=== PATIENT | male | born 1970 | race Caucasian/White ===

== ENCOUNTER → 2020-03-04 15:15 | Outpatient (CLI) | payer OTHER, SELFPAY ==
--- NOTE | ~2020-03-04 | XR_ITS ---
XR abdomen/kub 1V 03/04/2020 15:39 INDICATION: Acute flank pain TECHNIQUE: KUB COMPARISON: None FINDINGS: Bowel gas pattern is normal. Moderate colonic fecal loading. There is no evidence of free a ir, mass, organomegaly, ascites or obstruction. There is a left renal stone at the upper pole. There is a calcification in the right pelvis, likely a phlebolith. The bones appear intact. IMPRESSION: 1: Left nephrolithiasis. Reviewed, dictated and finalized at location A. IMPRESSION: 1: Left nephrolithiasis.
--- NOTE | ~2020-03-04 | CT_ITS ---
EXAMINATION: CT abdomen pelvis wo con DATE: 03/04/2020 15:39 INDICATION: Acute bilateral flank pain, difficulty urinating TECHNIQUE: Computed tomography (CT) of the abdomen and pelvis was performed without intravenous contr ast. The dose-length product (DLP) was 758.39 mGy-cm. Automated exposure control and iterative recons truction technique were employed. COMPARISON: Ultrasound, 02/05/2016 FINDINGS: There is a 3 mm nodule of the right lower lobe, likely old granulomatous disease in the abs ence of known risk factors. The heart size is normal. The liver, spleen, pancreas, gallbladder, and a drenal glands are normal. There is fluid attenuation centered at the hilum of the left kidney. There is questionable calyceal dilatation in the lower pole of the kidney but no definite calyceal dilatati on in the upper pole of the kidney. A 4 mm nonobstructing stone is present in the upper pole of the l eft kidney. There is a 3 mm nonobstructing stone of the right kidney upper pole. No stones are identi fied in the ureters or bladder. No pathologically enlarged abdominal or pelvic lymph nodes are identi fied. There is no free intraperitoneal gas or evidence of bowel obstruction. A large volume of coloni c stool is present. There is moderate lumbar spondylosis at L5-S1. A fat-containing umbilical hernia is noted. IMPRESSION: 1. Nonobstructing bilateral nephrolithiasis. 2. Fluid attenuation center at the hilum of the left kidney with questionable calyceal dilatation of the lower pole. Findings could reflect peripelvic cyst or possible UPJ stricture and a duplicated col lecting system. Consider CT urogram. 3. Constipation. Reviewed, dictated and finalized at location A. IMPRESSION: 1. Nonobstructing bilateral nephrolithiasis. 2. Fluid attenuation center at the hilum of the left kidney with questionable c alyceal dilatation of the lower pole. Findings could reflect peripelvic cyst or possible UPJ stricture and a duplicated collecting system. Consider CT urogram . 3. Constipation.
== END ==
PROVIDERS: PCP Family Medicine; Visit Provider Nurse Practitioner Adult Health
DX: R10.9 Unspecified abdominal pain (principal); N20.0 Calculus of kidney; K59.00 Constipation, unspecified
CPT/HCPCS: 74018; 74176

== ENCOUNTER → 2020-03-11 10:47 | Outpatient (CLI) | payer OTHER, SELFPAY ==
--- NOTE | ~2020-03-11 | CT_ITS ---
EXAMINATION: CT abdomen pelvis wo/w con DATE: 03/11/2020 11:51 INDICATION: Fluid attenuating reported at hilar area of left kidney with questionable calyceal dilata tion of lower pole; parapelvic cyst or possible UPJ stricture were suggested on 03/04/[address] abdomen pelvis examination. TECHNIQUE: Computed tomography (CT) of the abdomen and pelvis was performed without and subsequently with 130 cc Omnipaque 350 intravenous contrast. Automated exposure control and iterative reconstructi on technique were employed. Exam dose: 1690.54 mGy-cm total exam DLP. COMPARISON: 03/04/[address] abdomen pelvis FINDINGS: Normal heart size. No pericardial or pleural effusion. No infiltrate or consolidation in th e lower lung zones. Occasional calcified pulmonary granuloma. The liver, pancreas, spleen, adrenal glands, gallbladder, bile ducts and pancreatic duct are unremark able. Normal caliber of the abdominal aorta. No intraperitoneal or retroperitoneal or pelvic mass lesion or adenopathy or ascites. Up to approximately 4 x 5.4 cm left parapelvic renal cyst is identified. There are two very small cortical cysts of the right kidney are noted. There is a 4 mm nonobstructing upper pole right renal calculus. There is a 4 mm nonobstructing upper pole left renal calculus. No ureteral calculus or hydronephrosis of either kidney is noted. There is a fat containing umbilical hernia. There is prostate enlargement. The urinary bladder is unremarkable. There is a prominent amount of fecal material in the rectum and colon. No bowel obstruction, bowel wa ll thickening, pneumatosis or intraperitoneal free air is detected. There is moderately prominent degenerative disc disease and mild retrolisthesis at L5-S1; no suspicio us osteolytic or osteoblastic lesions are noted. IMPRESSION: Bilateral 4 mm upper pole nonobstructing renal calculi 4 x 5.4 cm left parapelvic renal cyst Prostate enlargement Reviewed, dictated and finalized at Location A. Reviewed, dictated and finalized at location B.
[2020-03-11 11:13] LABS: Estimated Glomerular Filt Rate > 60
== END ==
PROVIDERS: PCP Family Medicine; Visit Provider Nurse Practitioner Adult Health
DX: N28.1 Cyst of kidney, acquired (principal); N40.0 Benign prostatic hyperplasia without lower urinary tract symptoms
CPT/HCPCS: 74178; Q9967

== ENCOUNTER 2021-05-31 17:54 | Emergency (ER) | payer OTHER, SELFPAY ==
[2021-05-31 18:06] VITALS: BP 144/86; PULSE 67; RESP 20; TEMP 37.1; O2SAT 98
--- NOTE | 2021-05-31 18:22 | ED.EYEPROB ---
HPI - Eye Problem General Chief complaint: Eye Problems Stated complaint: left eye pain Time Seen by Provider: 05/31/21 18:23 Source: patient, RN notes reviewed and old records reviewed Mode of arrival: ambulatory Limitations: no limitations History of Present Illness HPI Narrative: 51-year-old male presents to the [facility] with complaints of left eye pain. States that he was using a chainsaw and thinks he may have gotten sawdust in his eye. chief complaint: eye pain Related Data Home Medications Medication Instructions Recorded Confirmed gabapentin 300 mg capsule 300 mg PO DAILY PRN 07/12/20 07/12/20 testosterone cypionate See Rx Instructions .ROUTE .COMPLEX 05/31/21 05/31/21 Allergies Allergy/AdvReac Type Severity Reaction Status Date / Time codeine AdvReac Unknown Nausea Verified 05/31/21 18:08 Review of Systems Review of Systems: All systems reviewed & are unremarkable except as noted in HPI and below Constitutional: Constitutional: Reports no additional constitutional complaints, Denies chills and Denies fever(s) Eyes: Eyes: Reports as per HPI, Denies blurry vision, Denies exophthalmos, Denies change in vision, Reports irritation, Denies other visual disturbances, Reports eye pain and Reports photophobia ENT: Reports system reviewed and no additional complaints, except as documented Cardiovascular: Cardiovascular: Reports no additional cardiovascular complaints Respiratory: Respiratory: Reports no additional respiratory complaints Gastrointestinal: Gastrointestinal: Reports no additional gastrointestinal complaints Genitourinary: Genitourinary: Reports no additional male genitourinary complaints Musculoskeletal: Musculoskeletal: Reports no additional musculoskeletal complaints Integumentary/Breasts: Skin/Breast: Reports system reviewed and no additional complaints, except as docu Neurologic: Reports system reviewed and no additional complaints, except as documented Psychiatric: Psychiatric: Reports no additional psychiatric complaints Allergic/Immunologic: Allergic/Immunologic: Reports no additional allergic/immunologic complaints [facility] Past Medical History Medical History (Updated 05/31/21 @ 20:10 by Marisol Hagan) Essential (primary) hypertension Hyperlipidemia, unspecified Surgical History Surgical History History of hip surgery 2007 Family History Family History Mother Family history of elevated blood lipids Patient's mother is in good health Father Family history of lymphoma, Onset Age: 65 Social History Social History Smoking status: Never smoker Alcohol intake: never Comments At the time of my signature, I reviewed and agree with the nursing past medical, surgical, social, and family history. There is no relevant family history pertinent to the patient complaint. Exam Const: General: no acute distress and alert Orientation/consciousness: patient oriented x3 HENMT: Head: normal to inspection Eyes: General: appearance normal, both eyes and all related structures Visual Cain: normal visual cain by confrontation Alignment and Position: alignment normal Eyelids: eyelid abnormality left upper eyelid erythema, foreign body (vs stye) and swelling; no crusting or scaling of lid margins Conjunctivae: conjunctivae normal Cornea: corneas abnormal (Small abrasion noted to the left medial aspect) and fluorescein used Pupils: Equal, round and reactive pupils present EOM: EOMs intact bilaterally Direct Ophthalmoscopy: normal light reflex and photophobia Eyes/upper lids images: 1. Abrasion 2. Inside left upper eyelid medial aspect concern for stye versus piece of sawdust. Discussed in great detail with this patient Neck: Neck: normal visual inspection, no lymphadenopathy and no meningeal signs Chest:
[2021-05-31 18:27] VITALS: BP 144/86; PULSE 67; RESP 20; TEMP 37.1; O2SAT 98
== END 2021-05-31 18:45 | disposition home or self-care (01) ==
PROVIDERS: Emergency Provider Nurse Practitioner
DX: S05.02XA Injury of conjunctiva and corneal abrasion without foreign body, left eye, initial encounter (principal); X58.XXXA Exposure to other specified factors, initial encounter; H00.014 Hordeolum externum left upper eyelid; I10 Essential (primary) hypertension; E78.5 Hyperlipidemia, unspecified
CPT/HCPCS: 99213; A9270; G0463

== ENCOUNTER 2022-02-02 07:51 | Outpatient (CLI) | payer OTHER, SELFPAY ==
[2022-02-02 18:53] LABS: Alanine Aminotransferase 38 U/L (6-50); Albumin Level 3.9 g/dL (3.5-5.1); Alkaline Phosphatase 74 U/L (38-126); Anion Gap 8 mmol/L (8-16); Aspartate Amino Transferase 36 U/L (17-59); Bilirubin,Total 1.2 mg/dL (0.2-1.3); Blood Urea Nitrogen 23 mg/dL (9-20); Calcium 9.5 mg/dL (8.4-10.2); Carbon Dioxide 27 mmol/L (22-30); Chloride 103 mmol/L (98-107); Cholesterol 255 mg/dL (0-200); Estimated Glomerular Filt Rate > 60; Glucose 86 mg/dL (65-110); HDL Direct 46 mg/dL; Potassium 4.4 mmol/L (3.4-5.0); Sodium 138 mmol/L (137-145); Triglycerides 58 mg/dL (<150)
[2022-02-02 19:04] LABS: LDL Cholesterol Direct 162 mg/dL
[2022-02-02 19:08] LABS: Hemoglobin A1C 5.4 % (<5.7)
[2022-02-05 20:32] LABS: PSA, Free 0.61 ng/mL; PSA, Total 3.5 ng/mL (<=4.0); Percent Free Prostate Spec Ag 17 % (>25)
== END 2022-02-02 07:52 | disposition home or self-care (01) ==
LOC: ANHGOSHLAB 07:53
PROVIDERS: PCP Emergency Medicine; Visit Provider Emergency Medicine
DX: R97.20 Elevated prostate specific antigen [PSA] (principal); Z00.00 Encounter for general adult medical examination without abnormal findings
CPT/HCPCS: 36415; 80053; 80061; 83036; 84153; 84154

== ENCOUNTER 2022-06-09 11:35 | Outpatient (CLI) | payer OTHER, SELFPAY ==
[2022-06-09 21:36] LABS: Alanine Aminotransferase 116 U/L (6-50); Albumin Level 4.1 g/dL (3.5-5.1); Alkaline Phosphatase 93 U/L (38-126); Anion Gap 5 mmol/L (8-16); Aspartate Amino Transferase 84 U/L (17-59); Bilirubin,Total 0.8 mg/dL (0.2-1.3); Blood Urea Nitrogen 14 mg/dL (9-20); Calcium 9.1 mg/dL (8.4-10.2); Carbon Dioxide 32 mmol/L (22-30); Chloride 104 mmol/L (98-107); Estimated Glomerular Filt Rate > 60; Glucose 98 mg/dL (65-110); Potassium 4.4 mmol/L (3.4-5.0); Sodium 141 mmol/L (137-145)
[2022-06-09 22:37] LABS: Folic Acid 17.9 ng/mL (2.76->20); Vitamin B12 > 1000.0 pg/mL (239-931)
== END 2022-06-09 11:36 | disposition home or self-care (01) ==
LOC: ANHGOSHLAB 11:36
PROVIDERS: PCP Emergency Medicine; Visit Provider Emergency Medicine
DX: G62.9 Polyneuropathy, unspecified (principal)
CPT/HCPCS: 36415; 80053; 82607; 82746; 84443

== ENCOUNTER 2022-09-12 18:19 | Emergency (ER) | payer OTHER, SELFPAY ==
[2022-09-12 18:22] VITALS: BP 139/90; PULSE 65; RESP 20; TEMP 36.9; O2SAT 100
--- NOTE | 2022-09-12 19:13 | ED.SKABFB ---
HPI - Skin/Abscess/Foreign Bdy General Chief complaint: Skin/Abscess/Foreign Body Stated complaint: 5 spots on back Time Seen by Provider: 09/12/22 19:13 Source: patient, RN notes reviewed and old records reviewed Mode of arrival: ambulatory Limitations: no limitations History of Present Illness HPI narrative: 52 year old male who presents to [facility] care with complaints of lesions to his thoracic back for 10 day duration which crosses over spinal column. Patient reports that there is no pain to the lesions some itching is present, no drainage from sites with some scabbing noted. Patient has been out in the sun the past few days working in yard, reports that he doesn't use sunscreen. patient reports that he does have a machine assembler that he has seen in the past in [facility]. complaint: rash Onset (ago): day(s) (10) Location: back (thoracic region) Quality: pruritic Treatments prior to arrival: other (Neosporin) Related Data Allergies Allergy/AdvReac Type Severity Reaction Status Date / Time codeine AdvReac Unknown Nausea Verified 08/24/22 08:27 Review of Systems Review of Systems: CONSTITUTIONAL: Denies fever, chills, or sweats. CARDIOVASCULAR: Denies chest pain, palpitations, or edema. RESPIRATORY: Denies cough or dyspnea. SKIN: Reports series of circular lesions on his thoracic back which cross across his spinal column, areas have some scabbing with no drainage noted, are not symmetrical some itching MUSCULOSKELETAL: Denies joint pain or myalgia. NEUROLOGIC: Denies headache, numbness, or weakness. All systems reviewed & are unremarkable except as noted in HPI and below PMFSH Past Medical History Medical History Acute non-recurrent maxillary sinusitis Anxiety disorder, unspecified Essential (primary) hypertension Facial scar Gastro-esophageal reflux disease with esophagitis Gastro-esophageal reflux disease without esophagitis Herpes simplex without mention of complication Hyperlipidemia, unspecified Other hyperlipidemia Wound of skin Surgical History Surgical History History of hip surgery 2008. 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 There is no relevant family history pertinent to the presenting complaint Exam Narrative: GENERAL: Well-appearing, well-nourished, and in no acute distress. HEAD: Normocephalic, atraumatic. EYES: PERRLA, conjunctivae clear, and EOMI. ENT: Mucous membranes moist. Oropharynx without edema, erythema or lesions. NECK: Supple. No lymphadenopathy CHEST: Clear to auscultation. No respiratory distress. SAO2 100% on room air HEART: Regular rate and rhythm. SKIN: Warm, dry.? 5 irregularly shaped lesions across thoracic back which cross spinal column without drainage and some scabbing noted which are itchy. NEURO:? Alert and oriented x3. PSYCH: Normal mood and affect Course Course Emergency Course: Patient is aware of diagnosis, understands and agrees to treatment plan.? Anticipatory guidance give
== END 2022-09-12 19:38 | disposition home or self-care (01) ==
PROVIDERS: Emergency Provider Registered Nurse; PCP Emergency Medicine
DX: L98.9 Disorder of the skin and subcutaneous tissue, unspecified (principal); I10 Essential (primary) hypertension; K21.00 Gastro-esophageal reflux disease with esophagitis, without bleeding; E78.5 Hyperlipidemia, unspecified
CPT/HCPCS: 99213; G0463

== ENCOUNTER 2023-07-13 08:49 | Outpatient (CLI) | payer OTHER, SELFPAY ==
[2023-07-13 19:54] LABS: Alanine Aminotransferase 48 U/L (6-50); Albumin Level 4.3 g/dL (3.5-5.1); Alkaline Phosphatase 71 U/L (38-126); Anion Gap 7 mmol/L (8-16); Aspartate Amino Transferase 54 U/L (17-59); Bilirubin,Total 1.4 mg/dL (0.2-1.3); Blood Urea Nitrogen 30 mg/dL (9-20); Calcium 9.6 mg/dL (8.4-10.2); Carbon Dioxide 30 mmol/L (22-30); Chloride 102 mmol/L (98-107); Cholesterol 254 mg/dL (0-200); Estimated Glomerular Filt Rate > 60; Glucose 63 mg/dL (65-110); HDL Direct 32 mg/dL; Potassium 4.5 mmol/L (3.4-5.0); Sodium 139 mmol/L (137-145); Triglycerides 120 mg/dL (<150)
[2023-07-13 20:05] LABS: LDL Cholesterol Direct 167 mg/dL
[2023-07-13 20:20] LABS: Hemoglobin A1C 5.5 % (<5.7)
== END 2023-07-13 08:50 | disposition home or self-care (01) ==
LOC: ANHGOSHLAB 08:50
PROVIDERS: PCP Emergency Medicine; Visit Provider Emergency Medicine
DX: E78.5 Hyperlipidemia, unspecified (principal)
CPT/HCPCS: 36415; 80053; 80061; 83036

== ENCOUNTER 2023-08-31 09:11 | Outpatient (CLI) | payer OTHER, SELFPAY ==
--- NOTE | ~2023-08-31 | CT_ITS ---
EXAMINATION: CT sinus wo con DATE: 08/31/2023 09:20 INDICATION: Congestion, stuffiness. Chronic sinusitis. TECHNIQUE: Computed tomography (CT) of the paranasal sinuses was performed without contrast. Iterativ e reconstruction technique was employed. Exam dose: 410.46 mGy-cm total exam DLP. COMPARISON: 2005 CT Limited sinus examination FINDINGS: There is rightward bowing of the nasal septum. Symmetrically moderately prominent soft tissue swelling of the nasal turbinates. Mild intralamellar cell of left middle nasal turbinate. The ostiomeatal units are patent bilaterally. Moderate mucoperiosteal thickening of the lower portion of the right maxillary sinus with a couple of up to 2 cm polypoid soft tissue opacities, along the lower anterior and lower lateral benjamin of the m axillary sinus which may represent mucous retention cysts or polyps. There is minimal mucoperiosteal thickening along the lower left maxillary sinus. The paranasal sinuses otherwise are well-developed and aerated. The mastoid air cells are well-developed and aerated bilaterally. Middle and inner ear apparatus appear normal. IMPRESSION: Moderate bowing of nasal septum Mild intralamellar cell of left middle nasal turbinate Patent ostiomeatal units Moderate nodular soft tissue thickening of the right maxillary sinus, minimal mucosal periosteal thic kening of the lower left maxillary sinus the paranasal sinuses, ostiomeatal units and mastoid air doug ls are otherwise well developed and aerated. Reviewed, dictated and finalized at Location A. Reviewed, dictated and finalized at location B. IMPRESSION: Moderate bowing of nasal septum Mild intralamellar cell of left middle nasal turbinate Patent ostiomeatal units Moderate nodular soft tissue thickening of the right maxillary sinus, minimal m ucosal periosteal thickening of the lower left maxillary sinus the paranasal si nuses, ostiomeatal units and mastoid air cells are otherwise well developed and aerated.
== END 2023-08-31 09:12 ==
PROVIDERS: PCP Emergency Medicine; Visit Provider Otolaryngology
DX: J34.89 Other specified disorders of nose and nasal sinuses (principal); J34.2 Deviated nasal septum; J32.9 Chronic sinusitis, unspecified
CPT/HCPCS: 70486

== ENCOUNTER 2023-09-24 07:09 | Outpatient (CLI) | payer OTHER, SELFPAY ==
--- NOTE | 2023-09-24 07:25 | ECG_ITS ---
SEE SCANNED COPY FOR CONFIRMED REPORT MTDD
== END 2023-09-24 07:10 | disposition home or self-care (01) ==
LOC: ANHSURGERY 07:12
PROVIDERS: PCP Emergency Medicine; Visit Provider Surgery
DX: Z01.818 Encounter for other preprocedural examination (principal); I10 Essential (primary) hypertension; K42.9 Umbilical hernia without obstruction or gangrene
CPT/HCPCS: 36415; 86850; 86900; 86901; 93005

== ENCOUNTER 2023-10-02 00:34 | Day surgery (SDC) | payer OTHER, SELFPAY ==
[2023-09-21 11:05] VITALS: BMI 28.9
--- NOTE | 2023-09-21 11:14 | PC.NURSE ---
Report to the Outpatient Waiting Room, entrance under the green pavilion located off [facility], at time 9:00 on date 10/02/23. Planned Procedure Time: 11:00. Time changes happen often and if your time is changed the preop area will call you the afternoon before. - You and your visitor will be asked to self-screen and do not enter if you have any COVID symptoms. - A mask is optional within the hospital at this time. Patients may have clear liquids (water, carbonated beverages, clear teas, apple juice) until 3 hours prior to surgery (8:00) with a maximum of 20 ounces. - No food from midnight until time of surgery Take the following medications with a SIP of water the morning of surgery: GABAPENTIN IF NEEDED DO NOT STOP ANY OF YOUR OTHER PRESCRIPTION MEDICATIONS PRIOR TO SURGERY ?EXCEPT THE FOLLOWING Medications to discontinue per physician: VITAMINS/SUPPLEMENTS Date to take last dose: 09/28/23 Please no make-up, nail sinhala, hairspray, perfume, deodorant, or body powder the day of surgery. No jewelry (including any body piercings) or valuables the day of surgery, leave them at home. Please take a shower or bath the night before, or the morning of, surgery with an antibacterial soap. Wear comfortable, loose fitting clothing. - Jewelry must be removed prior to entering the operating room. Rings and piercings that are not removed may be cut off. - The hospital will not accept responsibility for valuables. - Please leave all valuables, including medications, at home the day of surgery. If you are going home after surgery, a licensed cdl flatbed truck driver must drive you home. - NO public transportation without another adult if you receive anesthesia. - We recommend that an adult stay with you for 24 hours following discharge. - We also recommend that you do not drive, make important decision, drink alcoholic beverages, or take any drugs that were not prescribed by your health care provider for at least 24 hours after your discharge time. Follow any additional instructions given to you from your surgeon. If you or anyone in your household have experienced Covid symptoms in the past week, please notify your surgeon or the nurse liaison at the phone number below for possible testing. Telephone instructions given to PT - LIZ and asked if any additional questions and then verbalized understanding. Patient advised to call surgeon office or pre surgery nurse liaison [phone] if any additional questions.
[2023-10-02] VITALS (9 sets, daily range): BP systolic 114–173; BP diastolic 56–97; PULSE 46–67; RESP 11–19; TEMP 36.3–36.4; O2SAT 97–100
[2023-10-02] MEDS: LACTATED RINGERS 1,000 ML 30 ML IV CONT ×2 (08:45→13:17)
[2023-10-02] MEDS: ACETAMINOPHEN 500 MG TABLET 1000 MG PO (09:53)
[2023-10-02] MEDS: KETOROLAC 15 MG/ML VIAL (*BKC) IV PUSH (09:53)
--- NOTE | 2023-10-02 10:55 | WPDANESEPPF ---
Anes - Initial Pre Proc Eval Procedure: Operation Date: 10/02/23 11:00 Proposed Procedures p Laparoscopic Umbilical Hernia Repair with Mesh, Davinci Assisted - Lee Jarquin DO s Flexible Cystoscopy, Trans Rectal Ultrasound for Prostate Size - Brandon Day MD Date/Time: 10/02/23 10:55 Surgeon: Lee Jarquin DO Pre Op Diagnosis: Umb Hernia 2 cm Patient Data Age: 53 Gender: M Height: 1.88 m Weight: 100.4 kg Last Vital Signs Temp 97.6 F 10/02/23 09:55 Pulse 51 L 10/02/23 09:55 Resp 16 10/02/23 09:55 BP 147/90 H 10/02/23 09:55 Pulse Ox 100 10/02/23 09:55 O2 Del Method Room Air 10/02/23 09:55 Allergies Allergy/AdvReac Type Severity Reaction Status Date / Time codeine AdvReac Unknown Nausea Verified 10/02/23 09:53 Home Medications Medication Instructions Recorded Confirmed Type gabapentin 300 mg capsule 300 mg PO DAILY PRN Pain #90 caps 05/08/22 10/02/23 Rx azelastine 137 mcg (0.1 %) nasal 1 spray intranasal Q12H #30 mL 06/18/23 10/02/23 Rx spray aerosol lisinopril 30 mg tablet 30 mg PO DAILY #90 tabs 07/11/23 10/02/23 Rx multivitamin 1 tablet PO DAILY 09/21/23 10/02/23 History Patient hx anesthesia problems: none Family hx anesthesia problems: none Results Review: All pre-operative results and documents have been reviewed as part of the pre-operative evaluation. [facility] Past Medical History Medical History Acute non-recurrent maxillary sinusitis Anxiety disorder, unspecified Essential (primary) hypertension Facial scar Gastro-esophageal reflux disease with esophagitis Gastro-esophageal reflux disease without esophagitis Herpes simplex without mention of complication Hyperlipidemia, unspecified Other hyperlipidemia Wound of skin Surgical History Surgical History History of hip surgery 2008. 2007 Family History Family History Mother Family history of elevated blood lipids Patient's mother is in good health Father Family history of lymphoma, Onset Age: 65 Social History Social History Smoking status: Never smoker Alcohol intake: never Substance use: never Substance use type: does not use Lack of Transportation: No Lack of Food: Never True Current Housing: I Have Housing Concerned About Future Housing: No Difficulty Paying Gas/Electric Bills: No Difficulty Paying for Meds: No Currently Unemployed: No Education: Master's Degree or Higher Difficulty w/ Childcare or Family Care: No Living arrangements: with family Occupation/Education: occupation 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 Informed Consent: The patient's anesthetic plan and its attendant risks and benefits were discussed with the patient/family/POA. Questions were solicited and answers provided to the satisfaction of the patient/family/POA.
--- NOTE | 2023-10-02 10:56 | PM.IMHP ---
H&P: HPI History of Present Illness Date/Time: 10/02/23 10:56 Chief Complaint: Umbilical hernia Narrative: This is a 53-year-old man who presents for umbilical hernia repair. He was last seen in August and reports no significant changes since last seen in the office. Review of Systems Review of Systems: All systems reviewed & are unremarkable except as noted in HPI and below Constitutional: Constitutional: Denies chills, Denies fever(s), Denies headache(s) and Denies weight loss Eyes: Eyes: Denies change in vision ENT: Denies dizziness, Denies headache(s), Denies neck mass and Denies throat swelling Cardiovascular: Cardiovascular: Denies chest pain, Denies lightheadedness and Denies dyspnea Respiratory: Respiratory: Denies cough, Denies dyspnea and Denies wheezing Gastrointestinal: Gastrointestinal: Denies abdominal pain, Denies change in bowel habits, Denies nausea and Denies vomiting Genitourinary: Genitourinary: Denies hematuria and Denies dysuria Musculoskeletal: Musculoskeletal: Reports as per HPI Integumentary/Breasts: Skin/Breast: Reports as per HPI Neurologic: Denies dizziness and Denies headache(s) Allergic/Immunologic: Allergic/Immunologic: Denies throat swelling and Denies wheezing [facility] Past Medical History Medical History Acute non-recurrent maxillary sinusitis Anxiety disorder, unspecified Essential (primary) hypertension Facial scar Gastro-esophageal reflux disease with esophagitis Gastro-esophageal reflux disease without esophagitis Herpes simplex without mention of complication Hyperlipidemia, unspecified Other hyperlipidemia Wound of skin Surgical History Surgical History History of hip surgery 2007 Family History Family History Mother Family history of elevated blood lipids Patient's mother is in good health Father Family history of lymphoma, Onset Age: 65 Social History Social History Smoking status: Never smoker Alcohol intake: never Substance use: never Substance use type: does not use Lack of Transportation: No Lack of Food: Never True Current Housing: I Have Housing Concerned About Future Housing: No Difficulty Paying Gas/Electric Bills: No Difficulty Paying for Meds: No Currently Unemployed: No Education: Master's Degree or Higher Difficulty w/ Childcare or Family Care: No Living arrangements: with family Occupation/Education: occupation 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 Spiritual care concerns: No Meds Home Medications and Allergies Home Medications Medication Instructions Recorded Confirmed Type gabapentin 300 mg capsule 300 mg PO DAILY PRN Pain #90 caps 05/08/22 10/02/23 Rx azelastine 137 mcg (0.1 %) nasal 1 spray intranasal Q12H #30 mL 06/18/23 10/02/23 Rx spray aerosol lisinopril 30 mg tablet 30 mg PO DAILY #90 tabs 07/11/23 10/02/23 Rx multivitamin 1 tablet PO DAILY 09/21/23 10/02/23 History Allergies Allergy/AdvReac Type Severity Reaction Status Date / Time codeine AdvReac Unknown Nausea Verified 10/02/23 09:53 Vital Signs Vital Signs - 24 hr 10/02/23 09:55 Temperature 36.4 C Pulse Rate 51 L Respiratory Rate 16 Blood Pressure 147/90 H Pulse Oximetry 100 Oxygen Delivery Room Air Exam Const: General: no acute distress and alert Orientation/consciousness: patient oriented x3 HENMT: Head: normocephalic and atraumatic Ears: hearing grossly normal bilaterally Face/Nose/Sinus: Normal nares present Mouth: Yes Normal oral and palatal mucosa present Eyes: Periorbital: periorbital findings normal Sclera: sclerae normal EOM: EOMs intact bilaterally Neck: Neck: normal visual inspection, no lymphadenopathy and trachea midline Chest:
--- NOTE | 2023-10-02 10:58 | WPDHPUPDATE1 ---
History and Physical Update Update Date/Time: 10/02/23 10:58 History and Physical has been reviewed, including an updated exam of the patient. There are NO changes in the patient's condition. Risks, benefits, and alternatives have been discussed and questions answered. Patient agrees to proceed with procedure.
--- NOTE | 2023-10-02 11:16 | WPDHPUPDATE1 ---
History and Physical Update Update Date/Time: 10/02/23 11:16 History and Physical has been reviewed, including an updated exam of the patient. There are NO changes in the patient's condition. Risks, benefits, and alternatives have been discussed and questions answered. Patient agrees to proceed with procedure.
[2023-10-02] MEDS: ceFAZolin 2 GM/D5W 50 ML 2 GM/50 ML BAG IVPB (11:21)
[2023-10-02] MEDS: BUPIVACAINE/EPINEPHRINE 0.5% 30 ML VIAL INFILTRATE (12:00)
[2023-10-02] MEDS: BUPIVACAINE/EPINEPHRINE 0.5% 50 ML VIAL 30 ML INFILTRATE (12:17)
--- NOTE | 2023-10-02 13:08 | W.PM.PROC2 ---
Procedure Note - Detailed Date of Procedure 10/02/23 Pre-op Diagnosis Umbilical hernia Post-op Diagnosis Same ( 2 cm umbilical hernia) Procedure Performed Laparoscopic 2 cm umbilical hernia repair with mesh, da Maya assisted Surgeon Lee Jarquin DO Anesthesia General and Local (0.5% bupivacaine with epinephrine) Indications this is a 53 year old man who presented with an umbilical hernia. He had 1st notice a hernia about 10 years ago but this was overall asymptomatic. A little over a month ago he began experiencing worsening pain after recovering from a GI viral infection. He was found to have a 2 cm umbilical hernia containing fat exam. Discussions were made with the patient about treatment options and decision was made to proceed with robotic assisted laparoscopic umbilical hernia repair with mesh. Findings Laparoscopic 2 cm umbilical hernia repair with mesh was performed. The patient was found have a 2 cm umbilical hernia defect containing some omentum and preperitoneal fat. A transabdominal preperitoneal approach was utilized for repair. Once a wide enough preperitoneal pocket was created, I then reapproximated the fascial edges using 0 Stratafix running suture. A Bard soft mesh was then cut to 8 cm x 8 cm sq and this was placed within the preperitoneal pocket and secured to the abdominal wall using 3-0 Vicryl simple interrupted sutures. No other abnormalities were noted. No specimens were obtained for pathology. Description of Procedure Procedure as well as risks, benefits, and alternatives were discussed with the patient. Written consent was obtained and placed in chart prior to procedure. Patient was brought back to surgical suite. he was placed supine on operating table. Time-out was done to confirm patient and procedure. he was then intubated by the anesthesia department. A bump was placed under his left hip, and the bed was flexed slightly to extend the space between his costal margin and iliac crest. his abdomen was prepped and draped in sterile fashion using chlorhexidine prep. A 5 millimeter incision was made in the left upper quadrant, and a 5 millimeter Optiview trocar was advanced through the abdominal layers under direct visualization. Once inside the abdominal cavity, carbon dioxide insufflation was used to create a pneumoperitoneum. his abdomen was inspected. An 8 millimeter incision was made in the left lower quadrant, and an 8 millimeter robotic trocar was placed under direct visualization. Another 8 millimeter incision was made in the left lateral abdomen, and an 8 millimeter robotic trocar was placed under direct visualization. 0.5% bupivacaine with epinephrine was infiltrated around each port site. The 5 millimeter port was removed, and an 8 mm robotic trocar was placed under direct visualization. The robotic arms were brought up to the patient's bedside and secured to the ports. The camera and instruments were inserted, and I then moved over to the robotic console and took control of the camera and instruments. After careful thorough inspection of the abdominal cavity, I began my dissection at the hernia. a transabdominal preperitoneal plane was developed starting in the left upper quadrant and extending along the left lateral abdominal wall using scissors with electrocautery. The plane was then developed medially to the hernia defect and then the hernia sac was carefully reduced. I then continued the dissection to the right lateral abdominal wall wide enough to allow for mesh placement. I then measured the hernia size. The hernia measured 2 cm. The fascia was closed using an 0-Stratafix running suture in a vertical fashion. A 8 cm x 8 cm Bard soft mesh was then placed within the preperitoneal pocket. This was oriented vertically with the mesh centered on the hernia defect. The mesh was then secured at the center and 4 corners using 3-0 Vicryl simple interrupted sutures. The peritoneum was then cl
--- NOTE | 2023-10-02 13:42 | W.PM.PROC2 ---
Procedure Note - Detailed Date of Procedure 10/02/23 Pre-op Diagnosis BPH Post-op Diagnosis Same Procedure Performed Transrectal ultrasound prostate, flexible cystoscopy Surgeon Brandon Day MD Anesthesia General Description of Procedure patient is in the operative suite in preparation for a robotic assisted umbilical herniorrhaphy. Prior to that procedure I performed a transrectal ultrasonography while in a left lateral position. System with a transrectal probe. Measurements in width length and height demonstrated a calculated volume of 35.4 centimeter squared. He was then prepped and draped in routine sterile fashion while in a supine position. Flexible cystoscopy was undertaken with a 16 Martiniquais flexible cystoscope. He has exclusively lateral lobe hyperplasia without a significant median lobe. The bladder shows slight trabeculation. There is no intravesical foreign body or neoplasm. At this point Dr. Schilling is available to perform the robotic umbilical herniorrhaphy Estimated Blood Loss 5 Drains No Packing No Pathology None sent
[2023-10-02] MEDS: ONDANSETRON INJ 4 MG/2 ML VIAL IV PUSH (14:38)
== END 2023-10-02 15:35 | disposition home or self-care (01) ==
PROVIDERS: Urology; PCP Emergency Medicine; Visit Provider Surgery
PROC: (CPT 49591; principal; 2023-10-02 11:00)
PROC: 0TJB8ZZ Inspection of Bladder, Via Natural or Artificial Opening Endoscopic (ICD-10-PCS; CPT 52000; 2023-10-02 11:00)
DX: K42.9 Umbilical hernia without obstruction or gangrene (principal); N40.1 Benign prostatic hyperplasia with lower urinary tract symptoms; R35.0 Frequency of micturition; I10 Essential (primary) hypertension; E78.5 Hyperlipidemia, unspecified; K21.9 Gastro-esophageal reflux disease without esophagitis; F41.9 Anxiety disorder, unspecified
CPT/HCPCS: 49591; 76872; 52000; 36415; 86850; 86900; 86901; 93005; A9270; C1781; J0690; J1100; J1170; J1596; J1885; J2250; J2405; J2704; J3010; J7120

== ENCOUNTER 2023-10-16 00:14 | Day surgery (SDC) | payer OTHER, SELFPAY ==
[2023-10-10 10:58] VITALS: BMI 29.0
--- NOTE | 2023-10-10 10:59 | PC.NURSE ---
Report to the Outpatient Waiting Room, entrance under the green pavilion located off [facility], at time _0900_ on date _[id number]_. Planned Procedure Time: _1100_. Time changes happen often and if your time is changed the preop area will call you the afternoon before. - You and your visitor will be asked to self-screen and do not enter if you have any COVID symptoms. - A mask is optional within the hospital at this time. Patients may have clear liquids (water, carbonated beverages, clear teas, apple juice) until 3 hours prior to surgery with a maximum of 20 ounces. - No food from midnight until time of surgery Take the following medications with a SIP of water the morning of surgery: ___Pain medication if needed. DO NOT STOP ANY OF YOUR OTHER PRESCRIPTION MEDICATIONS PRIOR TO SURGERY ?EXCEPT THE FOLLOWING Medications to discontinue per physician Multivitamin Date to take last [id number] Please no make-up, nail bulgarian, hairspray, perfume, deodorant, or body powder the day of surgery. No jewelry (including any body piercings) or valuables the day of surgery, leave them at home. Please take a shower or bath the night before, or the morning of, surgery with an antibacterial soap. Wear comfortable, loose fitting clothing. - Jewelry must be removed prior to entering the operating room. Rings and piercings that are not removed may be cut off. - The hospital will not accept responsibility for valuables. - Please leave all valuables, including medications, at home the day of surgery. If you are going home after surgery, a licensed drive away driver must drive you home. - NO public transportation without another adult if you receive anesthesia. - We recommend that an adult stay with you for 24 hours following discharge. - We also recommend that you do not drive, make important decision, drink alcoholic beverages, or take any drugs that were not prescribed by your health care provider for at least 24 hours after your discharge time. Follow any additional instructions given to you from your surgeon. If you or anyone in your household have experienced Covid symptoms in the past week, please notify your surgeon or the nurse liaison at the phone number below for possible testing. Telephone instructions given to _Doug__and asked if any additional questions and then verbalized understanding. Patient advised to call surgeon office or pre surgery nurse liaison [phone] if any additional questions.
--- NOTE | 2023-10-15 15:20 | PM.IMHP ---
H&P: HPI History of Present Illness Date/Time: 10/15/23 15:20 Chief Complaint: nasal obstruction nasal congestion septal deviation turbinate hypertrophy chronic sinusitis recurrent sinusitis Narrative: planned procedure Review of Systems Review of Systems: All systems reviewed & are unremarkable except as noted in HPI and below PMFSH Past Medical History Medical History Acute non-recurrent maxillary sinusitis Anxiety disorder, unspecified Essential (primary) hypertension Facial scar Gastro-esophageal reflux disease with esophagitis Gastro-esophageal reflux disease without esophagitis Herpes simplex without mention of complication Hyperlipidemia, unspecified Other hyperlipidemia Wound of skin Surgical History Surgical History History of hip surgery 2008. 2007 Family History Family History Mother Family history of elevated blood lipids Patient's mother is in good health Father Family history of lymphoma, Onset Age: 65 Social History Social History (Reviewed 08/31/23 @ 08:37 by Carmen Chapman [facility]) Smoking status: Never smoker Alcohol intake: never Substance use: never Substance use type: does not use Lack of Transportation: No Lack of Food: Never True Current Housing: I Have Housing Concerned About Future Housing: No Difficulty Paying Gas/Electric Bills: No Difficulty Paying for Meds: No Currently Unemployed: No Education: Master's Degree or Higher Difficulty w/ Childcare or Family Care: No Living arrangements: with family Occupation/Education: occupation 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 [employer] Spiritual care concerns: No Meds Home Medications and Allergies Home Medications Medication Instructions Recorded Confirmed Type gabapentin 300 mg capsule 300 mg PO DAILY PRN Pain #90 caps 05/08/22 10/10/23 Rx azelastine 137 mcg (0.1 %) nasal 1 spray intranasal Q12H #30 mL 06/18/23 10/10/23 Rx spray aerosol lisinopril 30 mg tablet 30 mg PO DAILY #90 tabs 07/11/23 10/10/23 Rx multivitamin 1 tablet PO DAILY 09/21/23 10/10/23 History hydrocodone 5 mg-acetaminophen 325 1 tablet PO Q4H PRN pain #10 tabs 10/02/23 10/10/23 Rx mg tablet ibuprofen 800 mg tablet 800 mg PO Q8H PRN pain #30 tabs 10/02/23 10/10/23 Rx Allergies Allergy/AdvReac Type Severity Reaction Status Date / Time codeine AdvReac Unknown Nausea Verified 10/10/23 10:54 Exam Narrative: septal deviation turbinate hypertrophy chronic appearing sinuses Assessment and Plan Assessment and plan (1) Recurrent sinusitis: Code(s): J32.9 - Chronic sinusitis, unspecified Status: Acute Assessment and Plan: ?OR for endoscopic assisted septoplasty bilateral inferior turbinate reduction with outfracture bilateral image guided endoscopic maxillary antrostomies and anterior ethmoidectomies. risks discussed bleeding infection damage to surrounding structures need for further procedures. Failure resolve symptoms. Damage to any structure of the clavicle by myself her down to any structure induction remains of anesthesia including vocal cord paralysis. CSF leak brain brain damage change in vision total blindness. Septal perforation. Failure to resolve symptoms. Need for routine prolonged follow-up time-out for time off school inherent risk of narcotic use. (2) Chronic sinusitis: Code(s): J32.9 - Chronic sinusitis, unspecified Status: Acute (3) Nasal septal deviation: Code(s): J34.2 - Deviated nasal septum Status: Acute (4) Hypertrophy of both inferior nasal turbinates: Code(s): J34.3 - Hypertrophy of nasal turbinates Status: Acute
[2023-10-16] VITALS (9 sets, daily range): BP systolic 133–158; BP diastolic 77–98; PULSE 62–85; RESP 12–18; TEMP 36.5–37.3; O2SAT 95–100; BMI 28.1
--- NOTE | 2023-10-16 07:16 | WPDHPUPDATE1 ---
History and Physical Update Update Date/Time: 10/16/23 07:16 History and Physical has been reviewed, including an updated exam of the patient. There are NO changes in the patient's condition. Risks, benefits, and alternatives have been discussed and questions answered. Patient agrees to proceed with procedure.
[2023-10-16] MEDS: ACETAMINOPHEN 500 MG TABLET 1000 MG PO (09:45)
--- NOTE | 2023-10-16 11:10 | WPDANESEPPF ---
Anes - Initial Pre Proc Eval Procedure: Operation Date: 10/16/23 11:00 Proposed Procedures p Image Guided Bilateral Inferior Turbinate Reduction with Outfracture, Bilateral Endoscopic Maxillary Antrostomy, Bilateral Anterior Ethmoidectomy - Bryson Corrales MD s Endoscopic Assisted Septoplasty - Bryson Corrales MD Date/Time: 10/16/23 11:10 Surgeon: Bryson Corrales MD Pre Op Diagnosis: Chr Sinusitis, Septal Dev Patient Data Age: 53 Gender: M Height: 1.85 m Weight: 96.7 kg Last Vital Signs Temp 37.3 C 10/16/23 10:00 Pulse 62 10/16/23 10:00 Resp 18 10/16/23 10:00 BP 133/85 10/16/23 10:00 Pulse Ox 100 10/16/23 10:00 Allergies Allergy/AdvReac Type Severity Reaction Status Date / Time codeine AdvReac Unknown Nausea Verified 10/16/23 09:44 Home Medications Medication Instructions Recorded Confirmed Type gabapentin 300 mg capsule 300 mg PO DAILY PRN Pain #90 caps 05/08/22 10/16/23 Rx azelastine 137 mcg (0.1 %) nasal 1 spray intranasal Q12H #30 mL 06/18/23 10/16/23 Rx spray aerosol lisinopril 30 mg tablet 30 mg PO DAILY #90 tabs 07/11/23 10/16/23 Rx multivitamin 1 tablet PO DAILY 09/21/23 10/16/23 History hydrocodone 5 mg-acetaminophen 325 1 tablet PO Q4H PRN pain #10 tabs 10/02/23 10/10/23 Rx mg tablet ibuprofen 800 mg tablet 800 mg PO Q8H PRN pain #30 tabs 10/02/23 10/16/23 Rx Patient hx anesthesia problems: other (slow to awaken) Family hx anesthesia problems: none Results Review: All pre-operative results and documents have been reviewed as part of the pre-operative evaluation. [facility] Past Medical History Medical History Acute non-recurrent maxillary sinusitis Anxiety disorder, unspecified Essential (primary) hypertension Facial scar Gastro-esophageal reflux disease with esophagitis Gastro-esophageal reflux disease without esophagitis Herpes simplex without mention of complication Hyperlipidemia, unspecified Other hyperlipidemia Wound of skin Surgical History Surgical History History of hip surgery 2008. 2007 Family History Family History Mother Family history of elevated blood lipids Patient's mother is in good health Father Family history of lymphoma, Onset Age: 65 Social History Social History Smoking status: Never smoker Alcohol intake: never Substance use: never Substance use type: does not use Lack of Transportation: No Lack of Food: Never True Current Housing: I Have Housing Concerned About Future Housing: No Difficulty Paying Gas/Electric Bills: No Difficulty Paying for Meds: No Currently Unemployed: No Education: Master's Degree or Higher Difficulty w/ Childcare or Family Care: No Living arrangements: with family Occupation/Education: occupation 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 Informed Consent: The patient's anesthetic plan and its attendant risks and benefits were discussed with the patient/family/POA. Questions were solicited and answers provided to the satisfaction of the patient/family/POA.
[2023-10-16] MEDS: LACTATED RINGERS 1,000 ML 30 ML IV CONT ×2 (11:15→14:25)
[2023-10-16] MEDS: ceFAZolin 2 GM/D5W 50 ML 2 GM/50 ML BAG IVPB (11:44)
[2023-10-16] MEDS: OXYMETAZOLINE HCL 0.05% NAS 15 ML BTL (*BKC) 1 SPRAY NASAL (13:52)
[2023-10-16] MEDS: MUPIROCIN 2% OINT 22 GM TUBE 1 APPLIC EACH NARE (13:53)
[2023-10-16] MEDS: LIDO 1%/EPINEPHRINE 1:100,000 20 ML VIAL 30 ML INFILTRATE (13:54)
[2023-10-16] MEDS: fentaNYL CITRATE INJ (*CRX) 100 MCG/2 ML VIAL 25 MCG IV PUSH ×2 (14:51→14:54)
[2023-10-16] MEDS: ONDANSETRON INJ 4 MG/2 ML VIAL IV PUSH (15:25)
[2023-10-16] MEDS: SCOPOLAMINE 1 MG PATCH 1 PATCH TRANSDERM (15:40)
[2023-10-16] MEDS: diphenhydrAMINE HCl INJ 50 MG/ML VIAL 12.5 MG IV PUSH (15:51)
--- NOTE | 2023-10-16 16:32 | P.OP_ITS ---
Procedure Note - Detailed Date of Procedure 10/16/23 Pre-op Diagnosis Chr Sinusitis, Septal Dev,Turbinate hypertrophy Post-op Diagnosis Same Procedure Performed endoscopic assisted septoplasty, bilateral inferior turbinate reduction with outfracture, bilateral image guided endoscopic maxillary antrostomies anterior ethmoidectomies Surgeon Bryson Corrales MD Anesthesia General Indications see above Findings polypoid edema right maxillary sinus rightward deviated septum hypertrophy turbinates well reduced septum well straightened minimal bleeding no complications Description of Procedure patient identified consent verified preoperative patient brought to the operating. Time-out performed. General anesthesia induced endotracheal tube secured airway. Patient prepped draped position procedure confirmed 2nd time- out performed. Image guidance initiated confirmed. Afrin-soaked pledgets placed for 5 minutes then removed. 0 degree endoscope utilized. Total 20 cc 1% lidocaine 1 100,000 parts epinephrine injected bilateral nasal septum and inferior turbinates. Crosswicks incision made left side. Left nasal septal flap elevated no tears right nasal septal flap elevated after osteotome utilized to cross through the septum. No tears deviated septum removed Jarad Frey forceps Nunu frey osteotome P. Minimal bleeding FloSeal placed pad down suctioned out septum closed 3 interrupted 5 0 fast gut sutures. Turbinates reduced after stab incision anteriorly inferior turbinates with 15 blade 2.5 Stamps microdebrider utilized minimal tearing FloSeal placed padded shut laterally outfractured with [place] elevator. Minimal bleeding. Maxillary antrostomies performed with a ball-tip probe straight through cut image guidance and microdebrider. 70 degree scope utilized to ensure that the natural os connected to the surgical os. No damage to septum no damage to orbit no damage to nasolacrimal duct. Anterior ethmoids performed with Kerrison microdebrider no damage to orbit no damage to skull base no damage to septum. Wounds copiously with sterile normal saline small pieces Nova pack placed bilaterally David splints placed ensured to be lateral to the middle turbinates sutured anteriorly using 3-0 mattress nylon suture. Total blood loss 35 cc. I performed all dictated portions of procedure no complication care the patient back to Anesthesiology patient taken to PACU. Estimated Blood Loss 35 Drains No Packing Yes (Novapak) Pathology None sent Complications No immediate complications Condition Stable Disposition PACU [facility] Billing Surgery - Charge Forward: Surgery Billing
== END 2023-10-16 16:38 | disposition home or self-care (01) ==
PROVIDERS: PCP Emergency Medicine; Visit Provider Otolaryngology
PROC: (CPT 31256; principal; 2023-10-16 11:00)
PROC: (CPT 30520; 2023-10-16 11:00)
DX: J32.9 Chronic sinusitis, unspecified (principal); J34.2 Deviated nasal septum; J34.3 Hypertrophy of nasal turbinates; J33.8 Other polyp of sinus; I10 Essential (primary) hypertension
CPT/HCPCS: 31256; 31254; 61782; 30520; 30140; A9270; J0690; J1100; J1170; J1200; J2250; J2405; J2704; J3010; J7050; J7120

== ENCOUNTER 2023-10-23 12:28 | Outpatient (CLI) | payer OTHER, SELFPAY ==
--- NOTE | ~2023-10-23 | CT_ITS ---
Non-contrast CT scan of the Abdomen and Pelvis Clinical indication: Benign prostatic hypertrophy Technique: 2.5 mm axial scans were obtained through the abdomen and pelvis without intravenous or or al contrast. Dose reduction technique was used on this scan by utilizing automated exposure control a nd iterative reconstruction technique. The dose-length product (DLP) was 1153.50 mGy-cm. COMPARISON: 03/11/2020 Findings: Images through the lung bases reveal stable 5 mm pleural-based nodule at the right middle lobe. Bilateral nonobstructing renal stones measuring up to 5 mm in diameter. Stable parapelvic left renal cysts are present. No ureteral stone or hydronephrosis on either side. The liver, spleen, pancreas, gallbladder, and adrenals appear normal. There is no aortic aneurysm. There is no evidence of bowel obstruction. Images through the pelvis were performed. There is no evidence of ascites or lymphadenopathy. Urinary bladder unremarkable. Prostate gland is significantly enlarged. Impression: Enlarged prostate gland. Bilateral nonobstructing renal stones, as above. Stable parapelvic left renal cyst. Reviewed, dictated and finalized at [facility]. Impression: Enlarged prostate gland. Bilateral nonobstructing renal stones, as above. Stable parapelvic left renal cyst.
== END 2023-10-23 12:29 ==
PROVIDERS: PCP Emergency Medicine; Visit Provider Urology
DX: N40.1 Benign prostatic hyperplasia with lower urinary tract symptoms (principal); N20.0 Calculus of kidney; N28.1 Cyst of kidney, acquired
CPT/HCPCS: 74176

== ENCOUNTER 2023-11-08 00:10 | Day surgery (SDC) | payer OTHER, SELFPAY ==
[2023-10-30 11:26] VITALS: BMI 28.4
--- NOTE | 2023-10-30 11:30 | PC.NURSE ---
Report to the Outpatient Waiting Room, entrance under the green pavilion located off [facility], at time _0600_ on date _[id number]_. Planned Procedure Time: _0730_. Time changes happen often and if your time is changed the preop area will call you the afternoon before. - You and your visitor will be asked to self-screen and do not enter if you have any COVID symptoms. - A mask is optional within the hospital at this time. Patients may have clear liquids (water, carbonated beverages, clear teas, apple juice) until 3 hours prior to surgery with a maximum of 20 ounces. - No food from midnight until time of surgery Take the following medications with a SIP of water the morning of surgery: ___None DO NOT STOP ANY OF YOUR OTHER PRESCRIPTION MEDICATIONS PRIOR TO SURGERY ?EXCEPT THE FOLLOWING Medications to discontinue per physician None Date to take last dose Please no make-up, nail slovenian, hairspray, perfume, deodorant, or body powder the day of surgery. No jewelry (including any body piercings) or valuables the day of surgery, leave them at home. Please take a shower or bath the night before, or the morning of, surgery with an antibacterial soap. Wear comfortable, loose fitting clothing. - Jewelry must be removed prior to entering the operating room. Rings and piercings that are not removed may be cut off. - The hospital will not accept responsibility for valuables. - Please leave all valuables, including medications, at home the day of surgery. If you are going home after surgery, a licensed certified driver examiner must drive you home. - NO public transportation without another adult if you receive anesthesia. - We recommend that an adult stay with you for 24 hours following discharge. - We also recommend that you do not drive, make important decision, drink alcoholic beverages, or take any drugs that were not prescribed by your health care provider for at least 24 hours after your discharge time. Follow any additional instructions given to you from your surgeon. If you or anyone in your household have experienced Covid symptoms in the past week, please notify your surgeon or the nurse liaison at the phone number below for possible testing. Telephone instructions given to _Doug__and asked if any additional questions and then verbalized understanding. Patient advised to call surgeon office or pre surgery nurse liaison [phone] if any additional questions.
--- NOTE | 2023-11-06 07:00 | PM.HPGS ---
History of Present Illness History of Present Illness Consent: Risks, benefits, and alternatives have been discussed and questions answered. Patient agrees to proceed with procedure. Chief complaint: BPH Narrative: Timur White is a 53 year old male who is a longstanding patient in our practice with a long history of outlet obstructive voiding symptoms that has become refractory to medical management. Urodynamics show findings consistent with bladder outlet obstruction ( high pressure bladder contractions with slow flow). Renal ultrasonography recently has demonstrated a prostate volume of 35 g and cystoscopy shows lateral lobe hyperplasia without median lobe enlargement. His PSA is 4.1 which is very stable over time. He has opted against a prostate biopsy but, after careful discussion of therapeutic options for BPH, elected for a UroLift. He is aware of the risks including, but not limited to, persistent voiding symptoms, hematuria, need for a catheter short-term. Review of Systems Cardiovascular: Cardiovascular: Denies chest pain, Denies lightheadedness, Denies palpitations and Denies dyspnea Respiratory: Respiratory: Denies dyspnea Gastrointestinal: Gastrointestinal: Denies diarrhea, Denies nausea and Denies vomiting Genitourinary: Genitourinary: Denies hematuria and Denies dysuria Endocrine: Endocrine: Denies palpitations [facility] Past Medical History Medical History Acute non-recurrent maxillary sinusitis Anxiety disorder, unspecified Essential (primary) hypertension Facial scar Gastro-esophageal reflux disease with esophagitis Gastro-esophageal reflux disease without esophagitis Herpes simplex without mention of complication Hyperlipidemia, unspecified Other hyperlipidemia Wound of skin Surgical History Surgical History History of hip surgery 2007 History of umbilical hernia repair Laparoscopic 2 cm umbilical hernia repair with mesh, da Maya assisted 10/02/23 Family History Family History Mother Family history of elevated blood lipids Patient's mother is in good health Father Family history of lymphoma, Onset Age: 65 Social History Social History Smoking status: Never smoker Alcohol intake: never Substance use: never Substance use type: does not use Lack of Transportation: No Lack of Food: Never True Current Housing: I Have Housing Concerned About Future Housing: No Difficulty Paying Gas/Electric Bills: No Difficulty Paying for Meds: No Currently Unemployed: No Education: Master's Degree or Higher Difficulty w/ Childcare or Family Care: No Living arrangements: with family Occupation/Education: occupation 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 [employer] Spiritual care concerns: No Meds Home Medications and Allergies Home Medications Medication Instructions Recorded Confirmed Type gabapentin 300 mg capsule 300 mg PO DAILY PRN Pain #90 caps 05/08/22 10/30/23 Rx lisinopril 30 mg tablet 30 mg PO DAILY #90 tabs 07/11/23 10/30/23 Rx tamsulosin 0.4 mg capsule 0.4 mg PO DAILY 10/22/23 10/30/23 History Allergies Allergy/AdvReac Type Severity Reaction Status Date / Time codeine AdvReac Mild Nausea Verified 10/30/23 11:24 Assessment and Plan Assessment and plan (1) BPH loc w urin obs/LUTS: Code(s): N40.1 - Benign prostatic hyperplasia with lower urinary tract symptoms Status: Acute Assessment and Plan: Urolift
[2023-11-08] VITALS (8 sets, daily range): BP systolic 85–155; BP diastolic 56–92; PULSE 47–63; RESP 10–20; TEMP 36.2; O2SAT 20–100
--- NOTE | 2023-11-08 06:20 | WPDHPUPDATE1 ---
History and Physical Update Update Date/Time: 11/08/23 06:20 History and Physical has been reviewed, including an updated exam of the patient. There are NO changes in the patient's condition. Risks, benefits, and alternatives have been discussed and questions answered. Patient agrees to proceed with procedure.
[2023-11-08] MEDS: LACTATED RINGERS 1,000 ML 30 ML IV CONT ×2 (06:30→07:59)
--- NOTE | 2023-11-08 06:37 | P.PNAN_ITS ---
Anes - Initial Pre Proc Eval Procedure: Operation Date: 11/08/23 07:30 Proposed Procedures p Urolift - Brandon Day MD Date/Time: 11/08/23 06:37 Surgeon: Brandon Day MD Pre Op Diagnosis: BPH Patient Data Age: 53 Gender: M Height: 1.85 m Weight: 97.7 kg Allergies Allergy/AdvReac Type Severity Reaction Status Date / Time codeine AdvReac Mild Nausea Verified 11/07/23 14:37 Home Medications Medication Instructions Recorded Confirmed Type gabapentin 300 mg capsule 300 mg PO DAILY PRN Pain #90 caps 05/08/22 11/07/23 Rx lisinopril 30 mg tablet 30 mg PO DAILY #90 tabs 07/11/23 11/07/23 Rx tamsulosin 0.4 mg capsule 0.4 mg PO DAILY 10/22/23 11/07/23 History Patient hx anesthesia problems: none Family hx anesthesia problems: none Results Review: All pre-operative results and documents have been reviewed as part of the pre- operative evaluation. [facility] Past Medical History Medical History Acute non-recurrent maxillary sinusitis Anxiety disorder, unspecified Essential (primary) hypertension Facial scar Gastro-esophageal reflux disease with esophagitis Gastro-esophageal reflux disease without esophagitis Herpes simplex without mention of complication Hyperlipidemia, unspecified Other hyperlipidemia Wound of skin Surgical History Surgical History History of hip surgery 2008. 2007 History of umbilical hernia repair Laparoscopic 2 cm umbilical hernia repair with mesh, da Maya assisted 10/02/23 Family History Family History Mother Family history of elevated blood lipids Patient's mother is in good health Father Family history of lymphoma, Onset Age: 65 Social History Social History Smoking status: Never smoker Alcohol intake: never Substance use: never Substance use type: does not use Lack of Transportation: No Lack of Food: Never True Current Housing: I Have Housing Concerned About Future Housing: No Difficulty Paying Gas/Electric Bills: No Difficulty Paying for Meds: No Currently Unemployed: No Education: Master's Degree or Higher Difficulty w/ Childcare or Family Care: No Living arrangements: with family Occupation/Education: occupation 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 Informed Consent: The patient's anesthetic plan and its attendant risks and benefits were discussed with the patient/family/POA. Questions were solicited and answers provided to the satisfaction of the patient/family/POA.
[2023-11-08] MEDS: ceFAZolin 2 GM/D5W 50 ML 2 GM/50 ML BAG IVPB (07:23)
[2023-11-08] MEDS: LIDOCAINE HCL 2% GEL UROJET 10 ML PKG MUCOUS MEM (07:43)
--- NOTE | 2023-11-08 07:53 | W.PM.PROC2 ---
Procedure Note - Detailed Date of Procedure 11/08/23 Pre-op Diagnosis BPH Post-op Diagnosis Same Procedure Performed UroLift Surgeon Brandon Day MD Anesthesia General Description of Procedure The patient was prepped and draped in a routine fashion after the uneventful induction of a general LMA anesthetic. A 20F cystoscope was inserted into the bladder. The cystoscopy bridge was replaced with a UroLift delivery device. The first treatment site was the patient's right side approximately 1.5cm distal to the bladder neck. The distal tip of the delivery device was then angled laterally approximately 20 degrees at this position to compress the lateral lobe. The trigger was pulled, thereby deploying a needle containing the implant through the prostate. The needle was then retracted, allowing one end of the implant to be delivered to the capsular surface of the prostate. The implant was then tensioned to assure capsular seating and removal of slack monofilament. The device was then angled back toward midline and slowly advanced proximally (typically 3 to 4 mm) until cystoscopic verification of the monofilament being centered in the delivery bay. The urethral end piece was then affixed to the monofilament thereby tailoring the size of the implant. Excess filament was then severed. The delivery device was then re-advanced into the bladder. The delivery device was then replaced with cystoscope and bridge and the implant location and opening effect was confirmed cystoscopically. The same procedure was then repeated on the left side, and two additional implants were delivered just proximal to the verumontanum, again one on right and one on left side of the prostate, following the same technique. Therefore, a total of 4 implants were delivered. A final cystoscopy was conducted first to inspect the location and state of each implant and second, to confirm the presence of a continuous anterior channel was present through the prostatic urethra with irrigation flow turned off. The bladder was then filled with 150 cc irrigation fluid to assist the patient in void trial after the procedure, and all instruments were removed. At this point the cystoscope was removed and the patient was taken to the PACU in good condition. Drains No Packing No Pathology None sent Complications No immediate complications Condition Stable
== END 2023-11-08 09:34 | disposition home or self-care (01) ==
PROVIDERS: PCP Emergency Medicine; Visit Provider Urology
PROC: 0T7D8DZ Dilation of Urethra with Intraluminal Device, Via Natural or Artificial Opening Endoscopic (ICD-10-PCS; CPT 52441; principal; 2023-11-08 07:30)
DX: N40.1 Benign prostatic hyperplasia with lower urinary tract symptoms (principal); N13.8 Other obstructive and reflux uropathy; F41.9 Anxiety disorder, unspecified; I10 Essential (primary) hypertension; K21.00 Gastro-esophageal reflux disease with esophagitis, without bleeding; E78.49 Other hyperlipidemia; Z98.890 Other specified postprocedural states; Z80.7 Family history of other malignant neoplasms of lymphoid, hematopoietic and related tissues
CPT/HCPCS: 52441; 52442 ×3; J0690; J1100; J2250; J2405; J2704; J3010; J7120; L8699

== ENCOUNTER 2024-03-24 08:45 | Outpatient (CLI) | payer OTHER, SELFPAY ==
[2024-03-24 14:41] LABS: Basophils Percent Auto 0.4 % (0.2-1.2); Eosinophils Absolute Auto 0.1 K/mm3 (0-0.3); Eosinophils Percent Auto 1.4 % (0-4.4); Hematocrit 54.7 % (42.0-52.0); Hemoglobin 18.3 g/dL (14.0-18.0); Immature Granulocyte Absolute 0.03 K/mm3 (0.00-0.031); Immature Granulocyte Percent A 0.4 % (0-0.5); Lymphocytes Absolute Auto 2.52 K/mm3 (0.9-3.2); Lymphocytes Percent Auto 35.6 % (18.3-44.2); Mean Corpuscular HGB Conc 33.5 g/dl (32-36); Mean Corpuscular Hemoglobin 29.2 pg (26-34); Mean Corpuscular Volume 87.4 fl (80-100); Mean Platelet Volume 10.2 fl (7.4-10.4); Monocytes Absolute Auto 0.8 K/mm3 (0.1-0.6); Monocytes Percent Auto 11.2 % (2.6-8.5); Neutrophils Absolute Auto 3.6 K/mm3 (1.3-6.7); Platelet Count Result 210 k/mm3 (150-375); Red Blood Count 6.26 M/mm3 (4.6-6.20); Red Cell Distribution Width 13.6 % (11.5-14.5); White Blood Count 7.1 K/mm3 (4.5-10.0)
[2024-03-27 19:33] LABS: Testosterone Free 48.5 pg/mL (46.0-224.0)
[2024-03-27 21:48] LABS: Testosterone Total 357 ng/dL (250-1100)
== END 2024-03-24 08:46 | disposition home or self-care (01) ==
LOC: ANHGOSHLAB 08:46
PROVIDERS: PCP Emergency Medicine; Visit Provider Student in an Organized Health Care Education/Training Program
DX: E29.1 Testicular hypofunction (principal)
CPT/HCPCS: 36415; 84402; 84403; 85025

== ENCOUNTER 2024-06-13 08:49 | Outpatient (CLI) | payer OTHER, SELFPAY ==
--- NOTE | ~2024-06-13 | XR_ITS ---
EXAMINATION: XR chest 2V DATE: 06/13/2024 08:58 INDICATION: Chronic cough TECHNIQUE: PA and lateral views of the chest were obtained. COMPARISON: Chest radiograph dated 04/18/2013 FINDINGS: The lungs remain clear with no focal airspace opacities, pulmonary edema, pleural effusion or pneumot horax. The cardiomediastinal silhouette is normal. Mild thoracic spondylosis with chronic mild anteri or wedging of a few mid thoracic vertebral bodies. IMPRESSION: 1. No acute cardiopulmonary disease. Reviewed, dictated and finalized at location B. HING MACHINE OPERATING ENGINEER
== END 2024-06-13 08:50 | disposition home or self-care (01) ==
LOC: GOSHIMG 08:50
PROVIDERS: PCP Nurse Practitioner Family; Visit Provider Nurse Practitioner Family
DX: R05.3 Chronic cough (principal); R06.02 Shortness of breath
CPT/HCPCS: 71046

== ENCOUNTER 2024-07-09 07:31 | Outpatient (CLI) | payer OTHER, SELFPAY ==
--- NOTE | ~2024-07-09 | NM_ITS ---
EXAMINATION: NM stress w perf spect multi DATE: 07/09/2024 11:39 INDICATION: Chronic cough. TECHNIQUE: Rest images were obtained following intravenous administration of 12.4 mCi Tc99m tetrofosm in (Myoview). The patient performed an exercise activity. At peak exercise, 33.8 mCi Tc99m tetrofosmi n (Myoview) was administered intravenously, and stress images were obtained. Data was reconstructed i nto short axis and horizontal and vertical long axis SPECT images. Gated SPECT images were also obtai michael. COMPARISON: CT abdomen and pelvis 10/23/2023 FINDINGS: There is no definite reversible or fixed perfusion abnormality to suggest ischemia or infar ction. There is no segmental wall motion abnormality. Left ventricular ejection fraction measures 5 9%. IMPRESSION: 1. No definite ischemia or infarct. 2. Normal left ventricular ejection fraction measuring 59%. Reviewed, dictated and finalized at location A. LY SERVICE ASSISTANT
--- NOTE | 2024-07-09 07:46 | EST_ITS ---
Patient Info Name: Timur White Age: 54 years : 1970 Gender: Male Ht: 73 in Wt: 225 lbs BSA: 2.31 m2 HR: 60 bpm BP: 152 / 93 mmHg Exam Date: 07/09/2024 10:11 AM Exam Location: Echo Lab Patient Status: Outpatient Admit Date: 07/09/2024 Staff Ordering Physician: Lexi Owens Attending Provider: Lexi Owens Exercise Technologist: Radha Onofre RDCS Exercise Physician: Homero Castro DO Exam Type: CA stress test treadmill w NM Study Info Indications R06.02 - Shortness of breath A nuclear stress test was performed. Summary 1. 1. Negative Marlon exercise stress test for ischemic ST changes by ECG criteria. 2. 2. Reduced functional capacity, achieving 9.8 METs of workload due to early termination due to hypertensive response. 3. 3. Baseline hypertension with hypertensive response to exercise. 4. 4. Appropriate HR response to exercise. 5. 5. Appropriate HR recovery at 1 minute post exercise. 6. 6. Nuclear scan to follow and will be reported separately. Please correlate with it. 7. 7. Patient informed of the above results. Protocol: Marlon Stress ECG Details Stage: REST Duration (min): 2 min : 10 sec Speed (mph): 0.0 Grade (%): 0 HR (bpm): 59 SBP (mmHg): 152 DBP (mmHg): 93 METS: --- Stage: REST Duration (min): 7 min : 43 sec Speed (mph): 0.0 Grade (%): 0 HR (bpm): 67 SBP (mmHg): 152 DBP (mmHg): 93 METS: --- Stage: STAGE 1 Duration (min): 1 min : 0 sec Speed (mph): 1.7 Grade (%): 10 HR (bpm): 94 SBP (mmHg): 152 DBP (mmHg): 93 METS: --- Stage: STAGE 1 Duration (min): 2 min : 0 sec Speed (mph): 1.7 Grade (%): 10 HR (bpm): 105 SBP (mmHg): 152 DBP (mmHg): 93 METS: --- Stage: STAGE 1 Duration (min): 3 min : 0 sec Speed (mph): 1.7 Grade (%): 10 HR (bpm): 109 SBP (mmHg): 152 DBP (mmHg): 93 METS: --- Stage: STAGE 2 Duration (min): 1 min : 0 sec Speed (mph): 2.5 Grade (%): 12 HR (bpm): 123 SBP (mmHg): 252 DBP (mmHg): 95 METS: --- Stage: STAGE 2 Duration (min): 2 min : 0 sec Speed (mph): 2.5 Grade (%): 12 HR (bpm): 134 SBP (mmHg): 241 DBP (mmHg): 95 METS: --- Stage: STAGE 2 Duration (min): 3 min : 0 sec Speed (mph): 2.5 Grade (%): 12 HR (bpm): 134 SBP (mmHg): 241 DBP (mmHg): 95 METS: --- Stage: STAGE 3 Duration (min): 1 min : 0 sec Speed (mph): 3.4 Grade (%): 14 HR (bpm): 145 SBP (mmHg): 242 DBP (mmHg): 98 METS: --- Stage: STAGE 3 Duration (min): 1 min : 30 sec Speed (mph): 3.4 Grade (%): 14 HR (bpm): 145 SBP (mmHg): 242 DBP (mmHg): 98 METS: --- Stage: RECOVERY Duration (min): 0 min : 29 sec Speed (mph): 0.0 Grade (%): 0 HR (bpm): 145 SBP (mmHg): 235 DBP (mmHg): 79 METS: --- Stage: RECOVERY Duration (min): 1 min : 29 sec Speed (mph): 0.0 Grade (%): 0 HR (bpm): 113 SBP (mmHg): 235 DBP (mmHg): 79 METS: --- Stage: RECOVERY Duration (min): 2 min : 29 sec Speed (mph): 0.0 Grade (%): 0 HR (bpm): 93 SBP (mmHg): 229 DBP (mmHg): 92 METS: --- Stage: RECOVERY Duration (min): 3 min : 29 sec Speed (mph): 0.0 Grade (%): 0 HR (bpm): 90 SBP (mmHg): 213 DBP (mmHg): 99 METS: --- Stage: RECOVERY Duration (min): 4 min : 29 sec Speed (mph): 0.0 Grade (%): 0 HR (bpm): 84 SBP (mmHg): 151 DBP (mmHg): 102 METS: --- Stage: RECOVERY Duration (min): 5 min : 2 sec Speed (mph): 0.0 Grade (%): 0 HR (bpm): 86 SBP (mmHg): 151 DBP (mmHg): 102 METS: --- Rest HR: 67 bpm Peak HR: 146 bpm Rest Sys BP: 152 mmHg Peak Sys BP: 252 mmHg Max Pred HR: 164 bpm % Max Pred HR: 89 % Target HR: 139 bpm Max RPP: 36,792 bpm*mmHg Vincent Score: -1 BP Response: Patient exhibited a hypertensive response with stress Termination Reason: Reached target heart rate or workload Cardiac Symptoms: None Max ST Seg Deviation: 2 mm Total Time: 7 min : 30 sec Rest [place] BP: 93 mmHg Peak [place] BP: 95 mmHg Angina Score: None Total METS: 9.8 Resting ECG Sinus rhythm. Stress ECG No ST changes. Arrhythmias None. Report Signatures
--- NOTE | 2024-07-09 07:46 | ECHO_ITS ---
Patient Info Name: Timur White Age: 54 years : 1970 Gender: Male Ht: 73 in Wt: 225 lbs BSA: 2.31 m2 HR: 59 bpm BP: 177 / 110 mmHg Heart Rhythm: Sinus Rhythm Technical Quality: Good Exam Date: 07/09/2024 7:51 AM Exam Location: Echo Lab Patient Status: Outpatient Admit Date: 07/09/2024 Staff Ordering Physician: Lexi Owens Holistic Pulser: Radha Onofre RDCS Attending Provider: Lexi Owens Referring Physician: Roman MACHADO; Exam Type: CA echo doppler color flow Study Info Indications - chronic cough Complete two-dimensional, color flow and Doppler transthoracic echocardiogram is performed. Summary 1. Complete two-dimensional, color flow and Doppler transthoracic echocardiogram is performed. 2. Left ventricular chamber dimension is normal. 3. Left ventricular systolic function is normal, estimated at 55-60%. 4. The left ventricular diastolic function is normal. 5. E/e' 5 is not elevated. 6. Left atrial chamber dimension is mildly enlarged. 7. There is trace aortic valve regurgitation. 8. There is mild mitral valve regurgitation. 9. There is trace tricuspid valve regurgitation. 10. No pulmonary hypertension, estimated pulmonary arterial systolic pressure is 22 mmHg. Left Ventricle E/e' 5 is not elevated. Left ventricular chamber dimension is normal. Left ventricular systolic function is normal, estimated at 55-60%. The left ventricular diastolic function is normal. Right Ventricle Right ventricular systolic function is normal and with normal TAPSE 2.0 cm. Right ventricular chamber dimension is normal. Left Atria Left atrial chamber dimension is mildly enlarged. Right Atria Right atrial chamber dimension is normal. Aortic Valve The aortic valve is trileaflet. There is no aortic valve stenosis. There is trace aortic valve regurgitation. Pulmonic Valve There is no pulmonic regurgitation. Mitral Valve There is no mitral valve stenosis. There is mild mitral valve regurgitation. Tricuspid Valve There is trace tricuspid valve regurgitation. No pulmonary hypertension, estimated pulmonary arterial systolic pressure is 22 mmHg. Pericardium/Pleural There is no pericardial effusion. Inferior Vena Cava Normal inferior vena cava with >50% collapse upon inspiration consistent with normal right atrial pressure, 5 mmHg. Aorta The aortic root size at the sinus of Valsalva is normal. Left Ventricular Outflow Tract Name Value Normal LVOT 2D LVOT Diameter 2.0 cm LVOT Doppler LVOT Peak Gradient 3 mmHg LVOT Mean Gradient 2 mmHg LVOT VTI 19 cm LVOT VTI/AV VTI Ratio 0.7 LVOT Stroke Volume 62 ml LVOT CO 3.3 l/min LVOT CI 1.4 l/min/m2 Pulmonic Valve Name Value Normal RVOT Doppler RVOT Peak Gradient 1 mmHg PV Doppler PV Peak Gradient 6 mmHg Mitral Valve Name Value Normal MV Doppler MV Decel [place] 255 cm/s2 MV PHT 71 ms MV Area (PHT) 3.1 cm2 4.0-5.0 MV Diastolic Function MV E Peak Velocity 62 cm/s MV A Peak Velocity 48 cm/s MV E/A 1.3 MV Decel Time 244 ms MV Annular TDI MV E/e' (Septal) 9.0 <=8.0 MV E/e' (Lateral) 4.0 <=8.0 MV E/e' (Average) 6.5 Tricuspid Valve Name Value Normal TV Regurgitation Doppler TR Peak Velocity 203 cm/s TR Peak Gradient 17 mmHg Estimated PAP/RSVP RA Pressure 5 mmHg <=5 PA Systolic Pressure 22 mmHg <36 RV Systolic Pressure 22 mmHg <36 Aorta Name Value Normal Ascending Aorta Ao Root Diameter (MM) 3.6 cm Ao Root Diam Index (MM) 1.6 cm/m2 Aortic Valve Name Value Normal AV Doppler AV Peak Velocity 139 cm/s AV Peak Gradient 8 mmHg AV Mean Gradient 4 mmHg AV VTI 27 cm AV Area (Cont Eq VTI) 2.3 cm2 >=3.0 AV Area (Cont Eq Jim) 2.0 cm2 AV Regurgitation 2D LVOT Area 3.3 cm2 Ventricles Name Value Normal LV Dimensions 2D/MM IVS Diastolic Thickness (2D) 1.1 cm 0.6-1.0 LVID Diastole (2D) 5.1 cm 4.2-5.8 LVIW Diastolic Thickness (2D) 0.9 cm 0.6-1.0 LVID Systole (2D) 3.2 cm 2.5-4.0 LVOT Diameter 2.0 cm LV Mass (2D Cubed) 199.55 g 88.00-224.00 LV Mass Index (2D Cubed) 86 g/m2 49-115 Relative Wall Thickness (2D) 0.36 LV Fractional Shortening/Ejection Fraction 2D/MM LV Fractional Shortening (2D) 37 % 25-43 LV EF (2D Teicholz) 66 % 52-72 LV Diastolic Volume (4C MOD) 111 ml LV EF (4C MOD) 67 % LV Diastolic Volume (2C MOD) 102 ml LV EF (2C MOD) 63 % LV Diastolic Volume (BP MOD) 111 ml 62-150 LV Diastolic Volume Index (BP MOD) 48 ml/m2 34-74 LV Systolic Volume (BP MOD) 40 ml 21-61 LV Systolic Volume Index (BP MOD) 17 ml/m2 11-31 LV EF (BP MOD) 64 % 52-72 LV Diastolic Length (4C) 9.2 cm LV Systolic Length (4C) 7.9 cm LV Stroke Volume (4C MOD) 75 ml Atria Name Value Normal LA Dimensions LA Dimension (MM) 4.4 cm 3.0-4.1 LA Volume (4C A-L) 75 ml LA Volume (BP A-L) 84 ml RA Dimensions RA Area (4C) 8.8 cm2 <=18.0 Report Signatures
--- NOTE | 2024-07-09 12:52 | WPDPFTINT ---
PFT Procedure Performed PFT Procedure Performed Plethysmography (Lung Vol) Diffusing Cap (DLCO) Flow Vol Loop Spirometry w/o Bronchodil PFT Interpretation This is a pulmonary function test with spirometry, plethysmography and diffusing capacity. The test was performed and results interpreted in accordance with the 2019 and 2005 ATS/ERS Task Force guidelines respectively using the Global Lung Function Initiative-2012 reference equations. Patient demonstrated good effort and cooperation. Reproducibility criteria were met. The quality of the spirometry maneuver was Grade B. Findings: Spirometry: the contour the inspiratory and expiratory flow tracing are normal. The FVC is 5.83 L, 111% predicted. The FEV1 is 4.67 L, 115% predicted. the FEV1: FVC ratio is 80%. Plethysmography: The total lung capacity is 9.44 L, 125% predicted. The functional residual capacity is 4.77 L, 121% predicted. The residual volume is 3.46 L, 150% predicted. The residual volume: Total lung capacity ratio Is 37%. Diffusing capacity: The diffusing capacity unadjusted for hemoglobin and carboxyhemoglobin is 32.5, 106% predicted. The diffusing capacity adjusted for alveolar volume is 4.31, 103% predicted. Impression: The spirometry is normal without evidence of an obstructive abnormality. The total lung capacity is increased with a normal residual volume: Total lung capacity ratio consistent with large lungs. The diffusing capacity is normal. There are no prior studies for comparison
== END 2024-07-09 07:32 | disposition home or self-care (01) ==
PROVIDERS: PCP Emergency Medicine; Visit Provider Nurse Practitioner Family
DX: R05.3 Chronic cough (principal); R06.02 Shortness of breath; I51.7 Cardiomegaly; I34.0 Nonrheumatic mitral (valve) insufficiency; Z79.899 Other long term (current) drug therapy
CPT/HCPCS: 78452; 93017; 93306; 94375; 94726; 94729; A9502

== ENCOUNTER 2024-08-08 00:02 | Day surgery (SDC) | payer OTHER, SELFPAY ==
[2024-07-25 15:16] VITALS: BMI 29.0
[2024-08-08 12:43] VITALS: BP 141/95; PULSE 76; RESP 16; TEMP 36.1; O2SAT 98; BMI 29.0
[2024-08-08] MEDS: LACTATED RINGERS 1,000 ML 150 ML IV CONT (12:54)
--- NOTE | 2024-08-08 13:36 | PM.HPGS ---
History of Present Illness History of Present Illness Consent: Risks, benefits, and alternatives have been discussed and questions answered. Patient agrees to proceed with procedure. Chief complaint: cough,gerd,screening Narrative: Timur White is a 54 year old male with cough, already evaluated by ENT, also first screening colonoscopy Review of Systems Review of Systems: All systems reviewed & are unremarkable except as noted in HPI and below PMFSH Past Medical History Medical History Wound of skin Other hyperlipidemia Herpes simplex without mention of complication Gastro-esophageal reflux disease without esophagitis Gastro-esophageal reflux disease with esophagitis Facial scar Anxiety disorder, unspecified Acute non-recurrent maxillary sinusitis Essential (primary) hypertension Hyperlipidemia, unspecified Surgical History Surgical History History of umbilical hernia repair Laparoscopic 2 cm umbilical hernia repair with mesh, da Maya assisted 10/02/23 History of hip surgery 2008. 2007 Family History Family History Mother Family history of elevated blood lipids Patient's mother is in good health Father Family history of lymphoma, Onset Age: 65 Social History Social History Smoking status: Never smoker Alcohol intake: never Substance use: never Substance use type: does not use Lack of Transportation: No Lack of Food: Never True Current Housing: I Have Housing Concerned About Future Housing: No Difficulty Paying Gas/Electric Bills: No Difficulty Paying for Meds: No Currently Unemployed: No Education: Master's Degree or Higher Difficulty w/ Childcare or Family Care: No Living arrangements: with family Occupation/Education: occupation 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 Spiritual care concerns: No Meds Home Medications and Allergies Home Medications ?Medication ?Instructions ?Recorded ?Confirmed ?Type gabapentin 300 mg capsule 300 mg PO DAILY PRN Pain #90 caps 03/04/24 08/08/24 Rx lisinopril 30 mg tablet 30 mg PO DAILY #90 tabs 03/04/24 08/08/24 Rx sildenafil 100 mg tablet 100 mg PO DAILY PRN sexual activity 03/24/24 07/25/24 History Allergies Allergy/AdvReac Type Severity Reaction Status Date / Time codeine AdvReac Mild Nausea Verified 08/08/24 12:42 Vital Signs Vital Signs - 24 hr 08/08/24 12:43 Temperature 96.9 F L Pulse Rate 76 Respiratory Rate 16 Blood Pressure 141/95 H Pulse Oximetry 98 Oxygen Delivery Room Air Exam Const: General: comfortable and no acute distress HENMT: Face/Nose/Sinus: Normal nares present Eyes: General: appearance normal, both eyes and all related structures Neck: Neck: no JVD Resp: Auscultation: clear to auscultation bilaterally Cardio: Rate: regular rate Rhythm: regular rhythm GI: Inspection: non-distended GI Palp: Yes Soft to palpation Skin: General skin exam: normal color Neuro: General: gait normal Speech: normal speech Extrem: General: normal to inspection Psych: Mental Status: mental status grossly normal Assessment and Plan Assessment and plan (1) Encounter for screening colonoscopy: Code(s): Z12.11 - Encounter for screening for malignant neoplasm of colon Status: Acute Assessment and Plan: colonoscopy (2) Cough: Qualifiers: Cough type: chronic Qualified Code(s): R05.3 - Chronic cough Code(s): R05.9 - Cough, unspecified Status: Acute Assessment and Plan: egd with bx
--- NOTE | 2024-08-08 13:36 | WPDANESEPPF ---
Anes - Initial Pre Proc Eval Procedure: Operation Date: 08/08/24 14:00 Proposed Procedures p Esophagogastroduodenoscopy&Screen Colon - Samir Whittaker MD Date/Time: 08/08/24 13:36 Surgeon: Samir Whittaker MD Pre Op Diagnosis: cough,gerd,screening Patient Data Age: 54 Gender: M Height: 1.85 m Weight: 99.6 kg Last Vital Signs Temp 36.1 C L 08/08/24 12:43 Pulse 76 08/08/24 12:43 Resp 16 08/08/24 12:43 BP 141/95 H 08/08/24 12:43 Pulse Ox 98 08/08/24 12:43 O2 Del Method Room Air 08/08/24 12:43 Allergies Allergy/AdvReac Type Severity Reaction Status Date / Time codeine AdvReac Mild Nausea Verified 08/08/24 12:42 Home Medications ?Medication ?Instructions ?Recorded ?Confirmed ?Type gabapentin 300 mg capsule 300 mg PO DAILY PRN Pain #90 caps 03/04/24 08/08/24 Rx lisinopril 30 mg tablet 30 mg PO DAILY #90 tabs 03/04/24 08/08/24 Rx sildenafil 100 mg tablet 100 mg PO DAILY PRN sexual activity 03/24/24 07/25/24 History Patient hx anesthesia problems: none Family hx anesthesia problems: none Results Review: All pre-operative results and documents have been reviewed as part of the pre-operative evaluation. [facility] Past Medical History Medical History Wound of skin Other hyperlipidemia Herpes simplex without mention of complication Gastro-esophageal reflux disease without esophagitis Gastro-esophageal reflux disease with esophagitis Facial scar Anxiety disorder, unspecified Acute non-recurrent maxillary sinusitis Essential (primary) hypertension Hyperlipidemia, unspecified Surgical History Surgical History History of umbilical hernia repair Laparoscopic 2 cm umbilical hernia repair with mesh, [facility] assisted 10/02/23 History of hip surgery 2008. 2007 Family History Family History Mother Family history of elevated blood lipids Patient's mother is in good health Father Family history of lymphoma, Onset Age: 65 Social History Social History Smoking status: Never smoker Alcohol intake: never Substance use: never Substance use type: does not use Lack of Transportation: No Lack of Food: Never True Current Housing: I Have Housing Concerned About Future Housing: No Difficulty Paying Gas/Electric Bills: No Difficulty Paying for Meds: No Currently Unemployed: No Education: Master's Degree or Higher Difficulty w/ Childcare or Family Care: No Living arrangements: with family Occupation/Education: occupation 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 Informed Consent: The patient's anesthetic plan and its attendant risks and benefits were discussed with the patient/family/POA. Questions were solicited and answers provided to the satisfaction of the patient/family/POA.
[2024-08-08] MEDS: BENZOCAINE (*SP) 60 ML SPRAY CAN (HURRICAINE) 1 SPRAY MUCOUS MEM (13:56)
--- NOTE | 2024-08-08 13:56 | SUR.OPER ---
egd ended at 1352 and colonoscopy started at 1356
[2024-08-08 14:11] VITALS: BP 141/93; PULSE 81; RESP 24; O2SAT 100
[2024-08-08 14:21] VITALS: BP 135/101; PULSE 80; RESP 23; O2SAT 99
[2024-08-08 14:31] VITALS: BP 144/82; PULSE 63; RESP 21; O2SAT 99
== END 2024-08-08 14:38 | disposition home or self-care (01) ==
PROVIDERS: Referring Provider Nurse Practitioner Family; Visit Provider Internal Medicine Gastroenterology
PROC: 0DJ08ZZ Inspection of Upper Intestinal Tract, Via Natural or Artificial Opening Endoscopic (ICD-10-PCS; CPT 45378; principal; 2024-08-08 14:00)
DX: Z12.11 Encounter for screening for malignant neoplasm of colon (principal); D12.3 Benign neoplasm of transverse colon; K64.8 Other hemorrhoids; K21.00 Gastro-esophageal reflux disease with esophagitis, without bleeding; K31.9 Disease of stomach and duodenum, unspecified; R05.3 Chronic cough; E78.49 Other hyperlipidemia; I10 Essential (primary) hypertension
CPT/HCPCS: 43239; 45385; 88305; J2003; J2704; J7120

== ENCOUNTER 2024-10-17 08:39 | Outpatient (CLI) | payer OTHER, SELFPAY ==
[2024-10-17 19:58] LABS: Basophils Percent Auto 0.6 % (0.2-1.2); Eosinophils Absolute Auto 0.1 K/mm3 (0-0.3); Eosinophils Percent Auto 1.5 % (0-4.4); Hematocrit 50.9 % (42.0-52.0); Hemoglobin 16.6 g/dL (14.0-18.0); Immature Granulocyte Absolute 0.02 K/mm3 (0.00-0.031); Immature Granulocyte Percent A 0.3 % (0-0.5); Lymphocytes Absolute Auto 2.77 K/mm3 (0.9-3.2); Lymphocytes Percent Auto 41.7 % (18.3-44.2); Mean Corpuscular HGB Conc 32.6 g/dl (32-36); Mean Corpuscular Hemoglobin 27.4 pg (26-34); Mean Platelet Volume 9.8 fl (7.4-10.4); Monocytes Absolute Auto 0.6 K/mm3 (0.1-0.6); Monocytes Percent Auto 8.6 % (2.6-8.5); Neutrophils Absolute Auto 3.1 K/mm3 (1.3-6.7); Neutrophils Percent Auto 47.3 % (45.5-73.1); Platelet Count Result 233 k/mm3 (150-375); Red Blood Count 6.06 M/mm3 (4.6-6.20); White Blood Count 6.6 K/mm3 (4.5-10.0)
[2024-10-17 19:59] LABS: Vitamin D 25 Hydroxy 84.2 ng/mL
[2024-10-17 20:27] LABS: Hepatitis C Virus Antibody Negative (Negative)
[2024-10-17 20:29] LABS: Alanine Aminotransferase 79 U/L (6-50); Albumin Level 4.6 g/dL (3.5-5.1); Alkaline Phosphatase 75 U/L (38-126); Anion Gap 9 mmol/L (4-12); Aspartate Amino Transferase 57 U/L (17-59); Bilirubin,Total 1.1 mg/dL (0.2-1.3); Blood Urea Nitrogen 25 mg/dL (9-20); Calcium 9.6 mg/dL (8.4-10.2); Carbon Dioxide 29 mmol/L (22-30); Chloride 101 mmol/L (98-107); Cholesterol 325 mg/dL (0-200); Estimated Glomerular Filt Rate > 60; Glucose 90 mg/dL (65-110); HDL Direct 49 mg/dL; Potassium 5.2 mmol/L (3.4-5.0); Sodium 139 mmol/L (137-145); Triglycerides 115 mg/dL (<150)
[2024-10-17 20:41] LABS: LDL Cholesterol Direct 193 mg/dL
[2024-10-17 20:56] LABS: Prostate Specific Antigen 4.1 ng/mL (< OR = 4.0)
[2024-10-17 21:18] LABS: Vitamin B12 > 1000.0 pg/mL (239-931)
== END 2024-10-17 08:40 | disposition home or self-care (01) ==
PROVIDERS: PCP Emergency Medicine; Visit Provider Family Medicine
DX: Z12.5 Encounter for screening for malignant neoplasm of prostate (principal); Z11.59 Encounter for screening for other viral diseases; R06.02 Shortness of breath; R25.2 Cramp and spasm; E78.5 Hyperlipidemia, unspecified; I10 Essential (primary) hypertension
CPT/HCPCS: 36415; 80053; 80061; 82306; 82607; 84153; 85025; 86803; G0103